=== PATIENT | female | born 1980 | race Native Hawaiian/Other Pacific Islander ===

== ENCOUNTER 2017-01-05 08:47 | Emergency (ER) | payer OTHER ==
[2017-01-05 08:53] VITALS: TEMP 97.8; O2SAT 100
[2017-01-05 09:12] VITALS: BMI 29.7
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
[2017-01-05 11:07] VITALS: BP 138/72; PULSE 61; RESP 16
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
== END 2017-01-05 11:35 | disposition home or self-care (01) ==
LOC: ED 08:47
DX: S16.1XXA Strain of muscle, fascia and tendon at neck level, initial encounter (principal); V49.9XXA Car occupant (driver) (passenger) injured in unspecified traffic accident, initial encounter; M54.9 Dorsalgia, unspecified